=== PATIENT | female | born 1995 | race Two or more races ===

== ENCOUNTER → 2019-04-01 | Outpatient (REF) | payer OTHER ==
[2019-04-01 22:25] LABS: CHLAMYDIA DNA AMPLIFICATION NEGATIVE (NEGATIVE); GC DNA AMPLIFICATION NEGATIVE (NEGATIVE)
== END ==
LOC: M SFHCLUC 10:35
PROVIDERS: ATTEND Nurse Practitioner Family
DX: R30.0 Dysuria (principal)

== ENCOUNTER → 2019-07-20 | Outpatient (REF) | payer OTHER | LOC: M SFHCLERA 14:51 | PROVIDERS: ATTEND Physician Assistant | DX: R50.9 Fever, unspecified (principal); G43.909 Migraine, unspecified, not intractable, without status migrainosus ==

== ENCOUNTER 2019-12-11 20:15 | Emergency (ER) | payer OTHER ==
[~2019-12-11] VITALS: Ht 160 cm; Wt 65.9 kg
[2019-12-11] MEDS ORDERED: IBUP-1022 PO (20:21)
[2019-12-11] MEDS ORDERED: ACETAMINOPHEN 325 MG TAB PO ONE (20:30)
[2019-12-11] MEDS ORDERED: ALBUTEROL SULFATE 2.5 MG/0.5 ML INH NEB SOLN NEB ONE (21:00)
[2019-12-11 21:23] LABS: INFLUENZA A AMPLIFICATION NEGATIVE (NEGATIVE); INFLUENZA B AMPLIFICATION NEGATIVE (NEGATIVE)
[2019-12-11 22:29] VITALS: BP 127/78
[2019-12-11] MEDS ORDERED: ALBUTEROL 90 MCG/ACT 8GM HFA INHALER INH ONE ×2 (22:30)
[2019-12-11] MEDS ORDERED: VENTAER INH (22:31)
[2019-12-11] MEDS ORDERED: TESS100C PO (22:31)
--- NOTE | 2019-12-12 01:50 | REP ---
Clinical: Cough and fever . Comparison: None . Technique: PA and lateral. Findings: The mediastinum and cardiac silhouette are normal. The lung villalobos are clear and without acute consolidation, effusion, or pneumothorax. The skeletal structures are intact and normal. Impression: 1. No acute cardiopulmonary process. Electronically Signed by Sha Ross MD 12/12/2019 01:41 A
== END 2019-12-11 22:41 | disposition home or self-care (01) ==
LOC: M ED 20:15
DX: J21.8 Acute bronchiolitis due to other specified organisms (principal)

== ENCOUNTER 2021-05-15 21:41 | Outpatient (CLI) | payer OTHER ==
[~2021-05-15] VITALS: Ht 160 cm; Wt 75.4 kg
[~2021-05-15 21:41] MED LIST: IBUP-1022 PO; TESS100C PO; VENTAER INH
[2021-05-15 21:59] VITALS: BP 128/77
[2021-05-15 22:58] VITALS: BP 114/68
[2021-05-15 23:15] LABS: APPEARANCE, URINE CLEAR (CLEAR); BACTERIA, URINE AUTO 2+ (NEGATIVE); BILIRUBIN, URINE AUTO NEGATIVE (NEGATIVE); BLOOD, URINE BLOOD NEGATIVE (NEGATIVE); COLOR, URINE STRAW (YELLOW); GLUCOSE, URINE (UA) AUTO NEGATIVE (NEGATIVE); KETONE, URINE AUTO NEGATIVE (NEGATIVE); LEUKOCYTE ESTERASE, URINE AUTO NEGATIVE (NEGATIVE); NITRITE, URINE AUTO NEGATIVE (NEGATIVE); PROTEIN, URINE AUTO NEGATIVE (NEGATIVE); RBC, URINE AUTO 0 /HPF (0-3); SPECIFIC GRAVITY URINE AUTO 1.003 (1.002-1.035); SQUAMOUS EPITHELIAL CELL UR AU 2 /HPF (0-6); UROBILINOGEN, URINE AUTO 0.2 mg/dL (0.0-2.0); WBC, URINE AUTO 2 /HPF (0-3)
--- NOTE | 2021-05-15 23:25 | IPNPDOC ---
Text Note Date of Service The patient was seen on 05/15/21. NOTE TRIAGE EVALUATION FOR RULE-OUT RUPTURE OF MEMBRANES HPI: Mrs. Valentine Naranjo is a 25yo at 32w4d ega, by LMP c/w 1st trimester ultrasound, with PNC c/b Depression & Late Entry To Care who presents for rule-out rupture of membranes. Mrs. Naranjo reports "a single gush of clear fluid at 20:00". No leakage since. She denies uterine CTXs & VB. Endorses FM. PMH: - Negative PSH: - Negative OBH: - G1: (2017) spontaneous conception, current partner, T-, PPD on medication x1-month - G2: (2020) spontaneous conception GYNH: - LMP: 29 September 2020 - Denies a h/o STIs or PID Medications: - PNVs ALL: - NKDA SH: - Dependent, to an active duty Solider - Denies tobacco, alcohol & illicit drug use FH: - Negative PHYSICAL EXAMINATION: Afebrile, Normotensive Gen: AAox3, NAD, Speaking in complete sentences Abd: Gravid uterus : Normal appearing external genitalia SSE: Normal appearing vaginal mucosa & cervix; physiologic discharge; visibily closed cervix; No pooling of fluid; fFN / Wet Prep / ROSALES / G&C NAAT / & GBS collected SVE: Closed/Long/High NST: BL 130bpm, moderate variability, + accelerations, - decelerations TOCO: Uterine irritability Labs: UA: - PENDING UCx - PENDING GBS - PENDING G&C NAAT - PENDING fFH - Discarded given cervical length of 3.67cm ROSALES - Negative Wet Prep - Negative Ferning - Negative Nitrazine - Negative Imaging: TVUS CL - 3.67cm LIMITED ULTRASOUND SDP - 5.7cm Assessment: 25yo at 32w4d ega without evidence of rupture of membranes with negative Nitrazine / fern test & adequate SDP. No e/o PTL with a cervical length of 3.67cm with a closed cervix. Plan: - Patient discharged to home with strict return precautions - Patient will follow-up at a [facility] appointment scheduled for , 16 May 2021 - Will discuss UA/UCx/GBS/ G&C NAAT results at that visit - All questions answered Diego Lopez., Ph.D. ADRYAN & OB-SUPERVISOR [facility] Staff Physician DENISHA CALLAHAN M.D. May 15, 2021 23:25
[2021-05-16 00:35] LABS: CHLAMYDIA DNA AMPLIFICATION NEGATIVE (NEGATIVE); GC DNA AMPLIFICATION NEGATIVE (NEGATIVE)
== END 2021-05-15 23:06 | disposition home or self-care (01) ==
LOC: M LDO 21:41
PROVIDERS: ATTEND Obstetrics & Gynecology Reproductive Endocrinology
DX: O26.893 Other specified pregnancy related conditions, third trimester (principal); N89.8 Other specified noninflammatory disorders of vagina; Z3A.32 32 weeks gestation of pregnancy
CPT/HCPCS: 59025; 76815; 81001; 87081; 87086; 87661; G0378; G0463

== ENCOUNTER 2021-06-12 22:23 | Outpatient (CLI) | payer OTHER ==
[~2021-06-12] VITALS: Ht 160 cm; Wt 77.1 kg
[2021-06-12 22:38] VITALS: BP 138/63
[2021-06-12] MEDS ORDERED: STUACAP PO (22:42)
[2021-06-12] MEDS ORDERED: PRED5CON PO (22:44)
--- NOTE | 2021-06-13 00:55 | IPNPDOC ---
Date Seen The patient was seen on 06/13/21. Progress Note SUBJECTIVE: Patient is a 25-year-old AT 36 .6 WEEKS CONTRACTIONS Q 5 MINUTES MILD IN NATURE NO SROM NO VAGINAL DISCHARGE PRESENTED FOR ASSESSMENT ACTIVE LABOR . OBJECTIVE PHYSICAL EXAMINATION: VITAL SIGNS: Please see below. GENERAL: HEALTHY NO ACUTE DISTRESS HEENT: NORMAL CARDIOVASCULAR: SI S2 NO MURMUR RESPIRATORY: CLEAR BILATERAL TO BASES NO RALES NO RHONCHI . ABDOMINAL: SF HEIGHT 36 CM VERTEX BOWEL SOUNDS ACTIVE UTERUS NONTENDER EXTREMITIES: NO EDEMA NO DVT NO SVT NEUROLOGICAL: NORMAL PSYCHOLOGICAL: WELL LABORATORY DATA, IMAGING STUDIES, MICROBIOLOGY: Please see below. Echocardiogram: . DVT prophylaxis ordered?: ASSESSMENT AND PLAN: This is a 25 TEAR OLD UTERINE IRRITABILITY POSSIBLE DEHYDRATION NOT IN ACTIVE LABOR . PLAN NST DISCHARGE WITH PRECAUTIONS KEEP OB APPOINTMENT PROBLEMS: 1. PRE TERM UTERINE IRRITABILITY . 2. DEHYDRATION 3. : . DISPOSITION: . VS, I&O, 24H, Fishbone Vital Signs/I&O Vital Signs Date Time Temp Pulse Resp B/P (MAP) Pulse Ox O2 Delivery O2 Flow Rate FiO2 06/12/21 22:38 98.0 90 18 138/63 (88) Room Air Laboratory Data Microbiology Microbiology 06/12/21 Group B Streptococcus Screen (MARKUS), Received Pending Albaro Clarke MD Jun 13, 2021 00:54
== END 2021-06-12 23:52 | disposition home or self-care (01) ==
LOC: M LDO 22:23
PROVIDERS: ATTEND Obstetrics & Gynecology
DX: O47.03 False labor before 37 completed weeks of gestation, third trimester (principal); Z3A.36 36 weeks gestation of pregnancy; O26.893 Other specified pregnancy related conditions, third trimester; N88.8 Other specified noninflammatory disorders of cervix uteri; O99.283 Endocrine, nutritional and metabolic diseases complicating pregnancy, third trimester; E86.0 Dehydration; Z79.899 Other long term (current) drug therapy
CPT/HCPCS: 59025; 87081; G0378; G0463

== ENCOUNTER 2021-06-14 23:29 | Outpatient (CLI) | payer OTHER ==
[~2021-06-14] VITALS: Ht 160 cm; Wt 77.9 kg
[~2021-06-14 23:29] MED LIST changes: +PRED5CON PO; +STUACAP PO
[2021-06-15 00:34] VITALS: BP 132/73
--- NOTE | 2021-06-17 12:20 | HPE ---
HISTORY AND PHYSICAL DATE OF ADMISSION: 06/14/2021 HISTORY OF PRESENT ILLNESS: This lady is a 25-year-old 2, para 1, LMP September 29, 2020, Her EDC is July 06, 2021. She is presently at 36 and 6/7 weeks. This is her third evaluation in triage for contractions. 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 She was late entry to care and she is with uterine irritability. PAST HISTORY: July 04, 2018, 39 weeks, spontaneous vaginal delivery, female, 6 pounds 11 ounces, uncomplicated. She did have post- depression medications at that time. ALLERGIES: She has no known allergies. MEDICATIONS: She is on vitamins. PHYSICAL EXAMINATION: GENERAL: On admission, she appears to be distressed. She has contractions 2-5 minutes apart. She expresses moderate intensity, although they palpate mild. She has a category 1 strip on the monitor. VITAL SIGNS: Her blood pressure is 132/73, respirations 18, pulse 62, temperature 98.0. The rest of the examination is unremarkable. HEENT: Normocephalic atraumatic, neck full range of motion. Pupils equal and reactive to light. EXTREMITIES: Distal pulses are symmetric. No evidence of DVT, PE, or superficial phlebitis. CHEST: Chest is clear bilaterally at the bases. No wheezes or rhonchi. No CVA tenderness. ABDOMEN: Soft, four quadrant bowel sounds are noted. Presentation is vertex. The uterus is relaxed in between Evaristo Paiz contractions. She denies, nor does she show, any vaginal bleeding or discharge or premature rupture of membranes. INITIAL EXAMINATION: She has made some change from the past evaluation two days ago. Presently, she is 80% effaced, very posterior, 1-2 cm, and soft. The patient has expressed a wish to stay for another two hours and reevaluation. Two hours later on examination, she was found to have contractions spaced out to 6 minutes. She was well hydrated. Again, vaginal examination showed vertex presenting. Cervix is still 80% effaced, very posterior, 2 cm, again no show and no bleeding. We again cautioned her with precautions. If she has ruptured membranes, bleeding, or contractions lasting more than 60 seconds, to return for evaluation, otherwise to maintain her appointment at her office visit next week. SUMMARY: at 36 and 6/7 weeks of gestation with Duval Paiz significant contractions, category 1 strip. Discharged undelivered. [facility]
== END 2021-06-15 01:42 | disposition home or self-care (01) ==
LOC: M LDO 23:29
PROVIDERS: ATTEND Obstetrics & Gynecology
DX: O47.03 False labor before 37 completed weeks of gestation, third trimester (principal); Z3A.36 36 weeks gestation of pregnancy
CPT/HCPCS: 59025; G0378; G0463

== ENCOUNTER 2021-06-16 21:41 | Outpatient (CLI) | payer OTHER ==
[~2021-06-16] VITALS: Ht 160 cm; Wt 77.2 kg
[2021-06-16 22:10] VITALS: BP 131/71
--- NOTE | 2021-06-16 22:24 | IPNPDOC ---
Obstetrical Progress Note Date of Service Jun 16, 2021 Subjective Ms. Naranjo is a 26yo at 37+2 presenting for a labor check. she denied vb, lof, decreased fm. She was 2cm on Thursday. Objective Vital Signs Date Time Temp Pulse Resp B/P (MAP) Pulse Ox O2 Delivery O2 Flow Rate FiO2 06/16/21 22:10 97.8 75 16 131/71 (91) 98 Assessment Heart Rate (FHR): 130 Variability: Moderate Accelerations: Positive Decelerations: None Heart Rate Tracing: Category I Tocometer Contractions: Yes Frequency: irregular Sterile Vaginal Examination Dilation: 2cm Effacement (%): 80% Station: -2 Cervical Consistency: Medium Cervical Position: Posterior Postion/Presentation: Cephalic presentation (by US MVP 5.5c,) Assessment and Plan Status: Reassuring Additional Comments Ms. Naranjo is a 26yo at 37+2 presenting for a labor check. She was 2cm on Thursday. She remains 2cm today. NST CAT I reactive. VS normal. Eminent active labor is unlikely at this time. Educated on routine OB return precautions. Otherwise to follow up at next LOGAN LOVE DO Jun 16, 2021 22:24
== END 2021-06-16 22:20 | disposition home or self-care (01) ==
LOC: M LDO 21:41
PROVIDERS: ATTEND Obstetrics & Gynecology
DX: O47.03 False labor before 37 completed weeks of gestation, third trimester (principal); Z3A.37 37 weeks gestation of pregnancy
CPT/HCPCS: 59025; 76815; G0378; G0463

== ENCOUNTER 2021-06-18 04:44 | Outpatient (CLI) | payer OTHER ==
[~2021-06-18] VITALS: Ht 160 cm; Wt 77.2 kg
[2021-06-18 04:56] VITALS: BP 133/74
[2021-06-18] MEDS ORDERED: ACET500P3 PO (05:14)
[2021-06-18] MEDS ORDERED: BENA25CA4 PO (05:15)
[2021-06-18 05:51] VITALS: BP 170/85
[2021-06-18] MEDS ORDERED: MORPHINE 2 MG/ML 1ML VIAL (J2270) IM ONE (05:55)
[2021-06-18 06:00] VITALS: BP 148/67
[2021-06-18 06:42] VITALS: BP 129/60
[2021-06-18 07:26] VITALS: BP 123/74
--- NOTE | 2021-06-18 07:35 | IPNPDOC ---
Subjective Date Seen The patient was seen on 06/18/21. Subjective Chief Complaint/HPI Ms. Naranjo is a 26yo at 37+4 presenting for a labor check. Patient states she has had regular contractions every 2-3 min for the past week. Denies LOF, VB or discharge. +GFM General: Reports: Normal Appetite; Denies: Chills, Night Sweats, Fatigue, Malaise Constitutional: Denies: Chills, Fever, Night Sweats Cardiovascular: Denies: Chest Pain, Palpitations, Orthopnea, Paroxysmal Noc. Dyspnea, Lt Headedness Gastrointestinal: Denies: Nausea, Vomiting, Abdominal Pain, Diarrhea, Constipation Psych: Reports: Mood Normal; Denies: Depression, Memory Issues Objective Physical Examination General Exam: Positive: Alert, No Acute Distress Chest Exam: Positive: Normal air movement Heart Exam: Positive: Rate Normal Abdomen Exam: Positive: Other (gravid) Psych Exam: Positive: Mental status NL, Mood NL, Oriented x 3 Other physical findings FHT: 140's mod variability, + accels, no decels. Cat 1 tracing Nibbe: regular contractions every 2-3 min SVE: 1-2/T/H, very posterior cervix Assessment /Plan Assessment 26yo at 37w4d presenting for labor check. Pt offered morphine rest (1 dose IM to avoid having to insert IV). States it provided no relief. She was 2cm on Thursday and again on Thursday. She remains 2cm today. NST CAT I reactive. VS normal. Eminent active labor is unlikely at this time. Pt frustrated and would like to know what to do. Discussed with patient that even is she was 40wks and we could proceed with elective induction, there is nothing I can do at this time as she is jaycee regularly on her own and SVE is very posterior/cervix difficult to reach therefore would be unable to offer sweep or AROM. Pt encouraged to rest. Offered to keep an additional hour and recheck, pt states she would like to go home. Has follow up on . Plan/VTE VTE Prophylaxis Ordered?: No VTE Exclusion Mechanical Proph: Other (triage only visit ) VS, I&O, 24H, Fishbone Vital Signs/I&O Vital Signs Date Time Temp Pulse Resp B/P (MAP) Pulse Ox O2 Delivery O2 Flow Rate FiO2 06/18/21 06:42 57 20 129/60 (83) 06/18/21 04:56 97.8 EMERITA GUNDERSON M.D. Jun 18, 2021 07:35
== END 2021-06-18 07:47 | disposition home or self-care (01) ==
LOC: M LDO 04:44
PROVIDERS: ATTEND Obstetrics & Gynecology
DX: O47.1 False labor at or after 37 completed weeks of gestation (principal); Z3A.37 37 weeks gestation of pregnancy
CPT/HCPCS: 59025; 96372; G0378; G0463; J2270

== ENCOUNTER 2021-06-20 18:00 | Outpatient (CLI) | payer OTHER ==
[~2021-06-20] VITALS: Ht 160 cm; Wt 78.1 kg
[~2021-06-20 18:00] MED LIST changes: +ACET500P3 PO; +BENA25CA4 PO
[2021-06-20 18:22] VITALS: BP 120/69
--- NOTE | 2021-06-20 19:01 | IPNPDOC ---
Obstetrical Progress Note Date of Service Jun 20, 2021 Subjective Ms. Naranjo is a 25yo at 37+5 who presents for her 2h recheck after NST and SVE in clinic for labor check. She was 3/50/-3, cephalic, with good fluid, and a CAT I NST. She still denied VB, LOF, decreased FM. Objective Vital Signs Date Time Temp Pulse Resp B/P (MAP) Pulse Ox O2 Delivery O2 Flow Rate FiO2 06/20/21 18:22 98.0 100 15 120/69 (86) Room Air Assessment Variability: Moderate Accelerations: Positive Decelerations: None Heart Rate Tracing: Category I Tocometer Contractions: Yes Frequency: irregular Sterile Vaginal Examination Dilation: 3 cm Effacement (%): 50% Station: -3 Cervical Consistency: Medium Cervical Position: Posterior Postion/Presentation: Cephalic presentation Assessment and Plan Additional Comments Ms. Naranjo is a 25yo at 37+5 who presents for her 2h recheck after NST and SVE in clinic for labor check. She was 3/50/-3, cephalic, with good fluid, and a CAT I NST. Her cervix remains unchanged and her NST remains CAT I. Eminent active labor is unlikley at this time. Educated on routine OB return precautions Otherwise follow up at next LOGAN ABDALLA DO Jun 20, 2021 19:01
== END 2021-06-20 19:00 | disposition home or self-care (01) ==
LOC: M LDO 18:00
PROVIDERS: ATTEND Obstetrics & Gynecology
DX: O36.8330 Maternal care for abnormalities of the fetal heart rate or rhythm, third trimester, not applicable or unspecified (principal); Z3A.37 37 weeks gestation of pregnancy; Z79.899 Other long term (current) drug therapy
CPT/HCPCS: 59025; G0378; G0463

== ENCOUNTER → 2021-06-22 | Outpatient (CLI) | payer OTHER ==
[~2021-06-22] VITALS: Ht 160 cm; Wt 79.7 kg
[~2021-06-22] MED LIST changes: +ONDANSETRON 4 MG TAB PO ONE
[2021-06-22 02:27] VITALS: BP 126/74
[2021-06-22 03:34] VITALS: BP 124/73
[2021-06-22 04:31] LABS: APPEARANCE, URINE CLEAR (CLEAR); BACTERIA, URINE AUTO NEGATIVE (NEGATIVE); BILIRUBIN, URINE AUTO NEGATIVE (NEGATIVE); BLOOD, URINE BLOOD NEGATIVE (NEGATIVE); COLOR, URINE COLORLESS (YELLOW); GLUCOSE, URINE (UA) AUTO NEGATIVE (NEGATIVE); KETONE, URINE AUTO NEGATIVE (NEGATIVE); LEUKOCYTE ESTERASE, URINE AUTO NEGATIVE (NEGATIVE); NITRITE, URINE AUTO NEGATIVE (NEGATIVE); PROTEIN, URINE AUTO NEGATIVE (NEGATIVE); RBC, URINE AUTO 0 /HPF (0-3); SPECIFIC GRAVITY URINE AUTO 1.001 (1.002-1.035); SQUAMOUS EPITHELIAL CELL UR AU 0 /HPF (0-6); UROBILINOGEN, URINE AUTO 0.2 mg/dL (0.0-2.0); WBC, URINE AUTO 0 /HPF (0-3)
--- NOTE | 2021-06-22 04:57 | IPNPDOC ---
Obstetrical Progress Note Date of Service Jun 22, 2021 Subjective 26yo at 38+0 presenting to triage with contraction pain, loss of mucus plug and nausea/reflux. States contractions worsen every evening around 0100 waking her from sleep. She also feels nauseated tonight and feels that she has had increasing reflux, requesting medication for management. She otherwise denies LOF, VB or discharge. +GFM. Objective Laboratory Tests 06/22/21 04:00: Urine Color COLORLESS, Urine Appearance CLEAR, Urine pH 7.0, Urine Specific [place] 1.001L, Urine Protein NEGATIVE, Urine Glucose (Auto)(UA) NEGATIVE, Urine Ketones (Auto) NEGATIVE, Urine Blood NEGATIVE, Urine Nitrite NEGATIVE, Urine Bilirubin NEGATIVE, Urine Urobilinogen 0.2, Urine Leukocyte Esterase (Auto) NEGATIVE, Urine WBC (Auto) 0, Urine RBC (Auto) 0, Urine Hyaline Casts (Auto) 0, Urine Bacteria (Auto) NEGATIVE, Urine Squamous Epithelial Cells 0, Urine Sperm (Auto) BP 126/74 HR 75 Temp 98.1 Assessment Heart Rate (FHR): 120 Variability: Moderate Accelerations: Positive Decelerations: None Heart Rate Tracing: Category I Tocometer Contractions: Yes Frequency: irregular (every 2-6 min) Sterile Vaginal Examination Dilation: 3 cm Effacement (%): 60% Station: -3 Cervical Consistency: Soft Cervical Position: Posterior Postion/Presentation: Cephalic presentation Assessment and Plan Status: Reassuring Additional Comments Ms. Naranjo is a 26yo at 38+0 presenting with contraction pain, loss of mucus plug and nausea. Contractions are similar to every evening around 0100 where they have been increasing in frequency/intensity overnight. SVE has remained unchanged over several rechecks in triage over the past week. Pt does note some pressure/discomfort with urination as well. While in triage, provided dose of zofran for nausea which patient states worked well. Rx provided for zofran and pepcid. UA also obtained and neg for UTI. Pt given return precautions. Offered recheck prior to D/C home, pt declined. All questions answered. EMERITA GUNDERSON M.D. Jun 22, 2021 04:57
== END ==
LOC: M LDO 02:02
PROVIDERS: ATTEND Obstetrics & Gynecology
DX: O26.893 Other specified pregnancy related conditions, third trimester (principal); Z3A.38 38 weeks gestation of pregnancy; R11.0 Nausea; O99.613 Diseases of the digestive system complicating pregnancy, third trimester; K21.9 Gastro-esophageal reflux disease without esophagitis
CPT/HCPCS: 59025; 81001; G0378; G0463

== ENCOUNTER 2021-07-01 03:03 | Outpatient (CLI) | payer OTHER ==
[~2021-07-01] VITALS: Ht 160 cm; Wt 81.5 kg
[~2021-07-01 03:03] MED LIST changes: -ONDANSETRON 4 MG TAB PO ONE
[2021-07-01 03:20] VITALS: BP 148/84
[2021-07-01 04:46] VITALS: BP 146/72
[2021-07-01] MEDS ORDERED: HOME MED LIST COMPLETE! XX SCH (05:00)
[2021-07-01 05:30] VITALS: BP 134/72
--- NOTE | 2021-07-01 07:23 | IPN ---
PROGRESS NOTE DATE: 07/01/2021 SUBJECTIVE: This is the ninth evaluation of this lady for query labor check. Today she comes in with a history of contractions and query spontaneous rupture of membranes. She had called 4-1/2 hours previously, was told to wear diaper or pad and if they damp, to come in for evaluation. She comes in six hours later with history of contractions and said that she ruptured membranes at 15:30 yesterday. Her LMP was September 29, 2020. Her EDC by early ultrasound is July 06, 2021 at 39 plus weeks of gestation. She has a history of decompression on meds. She has late entry to care. 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 PAST HISTORY: July 04, 2018 at 39 weeks delivered livebirth female, 6 lb, 11 oz, had severe depression, no complications during the delivery. Presently she does not have any active oral HSV. She has significant history of depression and is taking her medications. OBJECTIVE: On initial examination, she was found to be very posterior 1-2 cm, minus 3 station, no defined ruptured membranes noted. Nitrazine was equivocal. She was maintained here for 2-3 hours, had a category 1 strip with accelerations, moderate variability. The baseline was normal. She was reevaluated. The cervix was very posterior, now 70% effaced, again 2 cm, no clear fluid. No vaginal bleeding was noted. No oral lesions were noted and no vulvar lesions were noted. She did have two mid-range blood pressures, however indeterminate that is the reason why, possibly related to contractions. On overall examination basically unchanged cervix from the last evaluations. Again we gave her precautions regarding her premature rupture of membranes, bleeding, contractions, 5-7 minutes apart, lasting 60 seconds. She has an appointment on Thursday for routine visit at which induction of labor can be set up. We did mention to her that induction of labor is at 41 weeks unless there are other intercurrent issues. Her anticipation was because she delivered at 39 and 3 last time that she should be delivered at this time. Again we reemphasized that 39 weeks for induction of labor is only related to risk factors to mother and baby. The patient expressed understanding. The patient was discharged undelivered, has an appointment as mentioned. Her two blood pressures when she was here, 148/84 and 146/72. Interim blood pressure just before discharge was 134/72. Reflexes are normal, no eye ground issues, no right upper quadrant pain, no edema. Pulse was 80. Temperature is 97.5 and respirations were 18. In summary, we have a term gestation with uterine irritability, discharged undelivered to follow up as mentioned. [facility]
== END 2021-07-01 05:45 | disposition home or self-care (01) ==
LOC: M LDO 03:03
PROVIDERS: ATTEND Obstetrics & Gynecology
DX: O26.893 Other specified pregnancy related conditions, third trimester (principal); N89.8 Other specified noninflammatory disorders of vagina; Z3A.39 39 weeks gestation of pregnancy; R03.0 Elevated blood-pressure reading, without diagnosis of hypertension; Z79.899 Other long term (current) drug therapy
CPT/HCPCS: 59025; G0378; G0463

== ENCOUNTER 2021-07-03 03:28 | Inpatient (IN) | payer OTHER ==
[~2021-07-03] VITALS: Ht 160 cm; Wt 81.9 kg
[2021-07-03] VITALS (20 sets, daily range): BP systolic 99–138; BP diastolic 54–85
[2021-07-03] MEDS ORDERED: OXYTOCIN DRIP 30 UNITS in IV 1 EA IV PRN (06:45)
[2021-07-03] MEDS ORDERED: OXYTOCIN DRIP 30 UNITS in IV 1 EA IV SCH (06:45)
[2021-07-03] MEDS ORDERED: CARBOPROST TROMETHAMINE 250 MCG/ML AMP IM PRN (06:45)
[2021-07-03] MEDS ORDERED: METHYLERGONOVINE MALEATE 0.2 MG/ML VIAL (J2210) IM PRN (06:45)
[2021-07-03] MEDS ORDERED: LIDOCAINE 1% MDV 20ML VIAL INFIL PRN (06:45)
[2021-07-03] MEDS ORDERED: TRANEXAMIC ACID INJection 1,000 MG in NS 100 ML IV PRN (06:45)
[2021-07-03] MEDS ORDERED: LR 1,000 ML IV SCH (06:45)
--- NOTE | 2021-07-03 07:02 | HPEPDOC ---
Obstetrical History & Physical General Date of Admission 07/03/2021 History of Present Illness Mrs. Naranjo is a 26yo at 39w4d by LMP c/w 16w4d US with SHERRY Jun admitted for elective IOL. Pt has had regular contractions daily since 37weeks gestation with numerous visits to L&D triage. States her contractions are currently every 1-4 min apart and have been increasing in intensity. Denies LOF, VB or discharge. +GFM. Pt and and very fatigued and requesting to stay. Chief Complaint: Contractions, term Care Care: Good Care Dating Final EDC: Jul 06, 2021 Final EDC by: LMP Antepartum Course Diagnos(e)s 1. Hx of depressoin 2. HSV1 3. 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 Satisfied parity Past Medical History Past Obstetrical History : Past Obstetrical History: Multigravida Date of Delivery: Jul 04, 2018 Type of Delivery: Spontaneous Vaginal Del. Sex of : Female (6#11oz) Complications: No [employer] [facility] History: No pertinent history Past Medical History Medical History hx of postpartm depression deafness in R ear Surgical History: Denies/None Family History Significant Family History: No pertinent family hx Social History Marital Status: Family situation: Spouse/partner home * Smoker: non-smoker Alcohol: Denies Imunizations Tdap status: current (05/16/21) Allergies Coded Allergies: No Known Allergies (Unverified , 06/15/21) Medications Scheduled PRN Acetaminophen (Tylenol Extra Strength) 500 Mg Powd.pack, 1,000 MG PO PRN PRN for PAIN LEVEL 3-5 Diphenhydramine HCl (Benadryl) 25 Mg Capsule, 50 MG PO PRN PRN for SLEEP Miscellaneous Medications Pnv No.63/Iron,Carb/Folic/Dha (Moy One Capsule) 1 Each Capsule, 1 CAP PO Physical Examination Physical Examination GENERAL: Alert and oriented times three. BREAST: . ABDOMEN: Gravid and non-tender to touch. FETUS: Is vertex (VTX) by sterile vaginal examination (SVE) an TAUS HEART RATE: Regular rate LUNGS: normal work of breathing EXTREMITIES: No edema. No clonus. Vital Signs/I&O BP: 132/81 (initially 173/94 with incorrectly sized cuff, repeat normal) HR 70 Temp 97.6 Pertinent Laboratoy Data Blood Type: A+ RBC Antibody Screen: Negative HIV: Negative Hepatitis B: Negative Rapid Plasma Reagin: Nonreactive Rubella: Immune Varicella: Immune Chlamydia/Gonorrhea: Negative Group B Streptococcus: Negative Glucose Tolerance Test: 97 Anatomy Ultrasound Placenta Location: Anterior Normal Anatomy: Yes Vaginal Examination Dilation: 3 cm Effacement: 50% Station: -3 Cervical Consistency: Soft Cervical Position: Posterior Presentation: Cephalic presentation Assessment Heart Rate (FHR): 130 Variability: Moderate Accelerations: Positive Decelerations: None Tocometer Contractions: Yes Frequency: irregular, every 1-5 min. Strength: palpated as moderate Assessment/Plan Assessment 26yo at 39w4d by LMP c/w 16w4d US with SHERRY Jul 20, admitted for elective IOL Plan Admit and orient. Back Tender and consent. Diet: Regular, clears if on pitocin or active labor. Group B Streptococcus (GBS) NEGATIVE Labs and intravenous (IV) per unit protocol. Counseled on Pitocin and induction of labor (IOL). Anticipate normal spontaneous delivery (). C-S as appropriate. Labor and Delivery Counseling We will deliver your baby through the vagina with possible assistance of forceps or vacuum device if needed for maternal or indications. Forceps and vacuum are devices that can assist with vaginal delivery when normal pushing efforts cannot achieve delivery on their own or when delivery is needed in an emergency for baby's well-being. Medications may be required to induce or augment (help) your labor in order to achieve a vaginal delivery. An episiotomy may be required to help your baby to delivery vaginally. You may also require repair of any lacerations or tears of your vagina or vulva that are caused by delivery. In some cases, emergencies can occur that require an emergency section delivery so quickly that there may not be enough time to stop and complete consent forms for section. Understand that if this occurs, your providers will discuss the need for a section with you before they proceed with surgery. section is the delivery of your baby through an incision in your abdomen. In some situations, section may be safer to mom and baby than continuing labor and is only performed when clinically indicated. Risks of vaginal delivery include but are not limited to: Bleeding, infection, injury to the vagina, pelvic structures, injury to baby, damage to the uterus, reactions to anesthesia, uterine rupture, risk of hysterectomy for life threatening bleeding, or . Medications used to induce or augment labor may increase your risk for infection, uterine tachysystole, uterine rupture, heart rate abnormalities, need for emergency delivery or possible dany arean hysterectomy, and hemorrhage. Additional risks for use of forceps and vacuum include: increased risk of perineal and vaginal lacerations, risk of urinary or bowel incontinence, increased risk of injury to baby with bruising, scratches, hematomas on the head, or intracranial bleeding. EMERITA GUNDERSON M.D. Jul 03, 2021 07:02
[2021-07-03 08:12] LABS: HEMATOCRIT 39.8 % (36.0-47.0); HEMOGLOBIN 13.6 g/dl (12.0-15.5); MEAN CORPUSCULAR HGB CONC 34.2 g/dl (32.0-36.5); MEAN CORPUSCULAR VOLUME 87.9 fl (80.0-96.0); PLATELET COUNT, AUTOMATED 252 10^3/uL (150-450); RED BLOOD COUNT 4.53 10^6/uL (4.00-5.40); WHITE BLOOD COUNT 12.8 10^3/uL (4.0-10.0)
[2021-07-03 08:44] LABS: ALBUMIN 2.5 GM/DL (3.2-5.2); ALT/SGPT 17 U/L (12-78); BILIRUBIN,TOTAL 0.4 MG/DL (0.2-1.0); BLOOD UREA NITROGEN 12 MG/DL (7-18); CALCIUM LEVEL 8.9 MG/DL (8.5-10.1); CARBON DIOXIDE LEVEL 20 MEQ/L (21-32); CHLORIDE LEVEL 107 MEQ/L (98-107); CREATININE FOR GFR 0.72 MG/DL (0.55-1.30); GLOMERULAR FILTRATION RATE > 60.0 (>60); GLUCOSE, FASTING 88 MG/DL (70-100); POTASSIUM SERUM 4.3 MEQ/L (3.5-5.1); SODIUM LEVEL 137 MEQ/L (136-145); TOTAL PROTEIN 6.3 GM/DL (6.4-8.2)
[2021-07-03] MEDS ORDERED: FENTANYL 2MCG/ML ROPIVACAINE 0.2% IN 0.9% NACL 100ML IVBAG As Ordered ONE (09:00)
[2021-07-03 09:06] LABS: CREATININE,RANDOM URINE 58.4 MG/DL; TOTAL PROTEIN,RANDOM URINE 41.5 MG/DL (0.0-12.0)
[2021-07-03] MEDS ORDERED: EPIDURAL/PCA KEYS XX PRN (09:10)
[2021-07-03] MEDS ORDERED: NALOXONE INJ 0.4MG/1ML VIAL (J2310 PER 1MG) IV PRN (09:10)
[2021-07-03] MEDS ORDERED: EPIDURAL COMMENT XX SCH (09:10)
[2021-07-03] MEDS ORDERED: REFRIGERATOR IV KEYS XX PRN (09:10)
[2021-07-03] MEDS ORDERED: diphenhydrAMINE 50MG/ML VIAL (J1200) IV PRN (09:10)
[2021-07-03] MEDS ORDERED: LACTATED RINGER'S 1000 ML IV PRN (09:10)
[2021-07-03] MEDS ORDERED: FENTANYL/ROPIVACAINE/NACL BAG 100 ML EPIDURAL SCH (09:10)
[2021-07-03] MEDS ORDERED: ONDANSETRON 4MG/2ML VIAL IV PRN (09:10)
[2021-07-03] MEDS ORDERED: ePHEDrine SULFATE 25 MG/5 ML(5MG/ML) SYRINGE IV PRN (09:10)
--- NOTE | 2021-07-03 09:41 | IPNPDOC ---
Obstetrical Progress Note Date of Service Jul 03, 2021 Subjective 26 yo at 39w4d with SHERRY of 06 JUL 2021 admitted for labor. She is now comfortable with her epidural. She has no further complaints at this time. She has supportive family at the bedside. Objective Spontaneous gross rupture noted during her cervical exam with copious amounts of clear fluid. Assessment Heart Rate (FHR): 135 Variability: Moderate Accelerations: None Decelerations: Early, Variable Tocometer Contractions: Yes Frequency: regular (every 3-5 minutes) Sterile Vaginal Examination Dilation: 6 cm (6-7 cm) Effacement (%): 90% Station: -1 Cervical Consistency: Soft Cervical Position: Middle Postion/Presentation: Cephalic presentation Assessment and Plan Age: 26 : 2 Term: 1 Pre-term: 0 Abortions: 0 Livin Weeks & Days 39w4d Status: Reassuring Group B Streptococcus: Negative Anticipate: Vaginal Delivery RODNEY OCONNELL CNM Jul 03, 2021 09:41
[2021-07-03] MEDS ORDERED: PROMETHAZINE 25 MG TAB PO PRN (13:40)
[2021-07-03] MEDS ORDERED: ACETAMINOPHEN TAB 650MG DOSE (2X325MG) PO PRN (13:40)
[2021-07-03] MEDS ORDERED: METHYLERGONOVINE MALEATE 0.2 MG TAB PO PRN (13:40)
[2021-07-03] MEDS ORDERED: DIBUCAINE 1% OINTMENT 30GM TOP PRN (13:40)
[2021-07-03] MEDS ORDERED: MEASLES,MUMPS,RUBELLA VACCINE INJ (MMR-II) (90707) SC SCH (13:40)
[2021-07-03] MEDS ORDERED: IBUPROFEN 600MG TAB PO PRN (13:40)
--- NOTE | 2021-07-03 13:46 | DNPDOC ---
[facility] Delivery Note Delivery Note Date of the procedure: 03 JUL 2021 Preoperative diagnosis: 1. 26 y/o at 39w4d 2. Active labor 3. GBS negative 4. A positive 5. Hx of PP depression 6. 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 Mildly elevated BP 8. Borderline oligohydramnios at 6 cm Postoperative diagnosis: 1. 1. 26 y/o G2 now P2002 at 39w4d 2. Active labor 3. GBS negative 4. A positive 5. Hx of PP depression 6. 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 Mildly elevated BP 8. Borderline oligohydramnios at 6 cm Procedure: Delivering Provider: LEO Carnes CNM, RAF[employer] Manager Back-up: Dr. Boom Garrison Anesthesia: Epidural EBL: 200 ml Specimens: None Findings: Live male weighing 8 lb 2 oz, 3690 grams with Apgars of 9 and 9 at 1 and 5 minutes respectively. Complications: None Details of the procedure: The patient presented complaining of contractions and was found to be in latent labor with elevated BP and borderline oligohydramnios of 6 cm. Patient was 3 cm dilated and was then admitted to L&D. Labor progressed without Pitocin and membr anes were ruptured spontaneously for clear fluid.. The patient progressed to fully dilated and entered the second stage of labor, at which point she began to push over an intact perineum. The head was then delivered. The nuchal cord was not noted. The rest of the infant was delivered. The was placed on maternal abdomen and the cord was doubly clamped and cut. Cord blood was not collected and a 3 vessel cord was noted. Manual exploration of the uterus was not performed. Uterine tone was firm. Perineum was inspected and no was found. Cervical exam was normal. Rectal exam was not noted. Sponge, instrument, and needle counts were correct. The patient tolerated the procedure well and is stable in recovery. Note was written and electronically signed by: LEO Carnes CNM, RODNEY JOYCE CNM Jul 03, 2021 13:38
[2021-07-03] MEDS: IBUPROFEN 800 MG TAB PO PRN (18:59)
[2021-07-03] MEDS: DOCUSATE SODIUM 100MG CAPSULE PO SCH (22:06)
[2021-07-03] MEDS: ACETAMINOPHEN 500 MG TAB PO PRN (23:14)
[2021-07-04] MEDS: IBUPROFEN 800 MG TAB PO PRN ×2 (02:25→16:47)
[2021-07-04 06:00] VITALS: BP 128/63
--- NOTE | 2021-07-04 07:03 | IPNPDOC ---
Progress Note Date of Service: Jul 04, 2021 Progress Note 26 yo G2 now P2 PPD#1 s/p uncomplicated yesterday evening after being admitted for early labor. No acute events overnight. Valentine reports feeling well this AM. She is ambulating, voiding, tolerating a regular diet, and has minimal lochia. Vitals - VSS, afebrile, normotensive, non tachycardic General - AAOX3, sitting up in bed, pleasant and conversant, NAD Abdomen - Fundus firm at U-2. No fundal tenderness. Extremities - No edema UO - appropriate Valentine is doing well and is making an appropriate recovery. She desires circumcision of her son today. Continue routine care. Likely discharge home tomorrow. All questions answered. Bladimir VS, I&O, 24H, Ethan Vital Signs/I&O Vital Signs Date Time Temp Pulse Resp B/P (MAP) Pulse Ox O2 Delivery O2 Flow Rate FiO2 07/04/21 06:00 97.3 77 20 128/63 (84) 97 Room Air I&O- Last 24 Hours up to 6 AM 07/04/21 06:00 Output Total 200 ml Balance -200 ml Laboratory Data 24H LABS Laboratory Tests 2 07/03/21 07:58: Nucleated Red Blood Cells % (auto) 0.0, Urine Random Creatinine 58.4, Urine Random Total Protein 41.5H, Anion Gap 10, Glomerular Filtration Rate > 60.0, Calcium Level 8.9, Total Bilirubin 0.4, Aspartate Amino Transf (AST/SGOT) 18, Alanine Aminotransferase (ALT/SGPT) 17, Alkaline Phosphatase 234H, Total Protein 6.3L, Albumin 2.5L, Albumin/Globulin Ratio 0.7L, Syphilis Serology NONREACTIVE CBC/BMP Laboratory Tests 07/03/21 07:58 NU DAVEY DO Jul 04, 2021 07:03
[2021-07-04] MEDS: DOCUSATE SODIUM 100MG CAPSULE PO SCH ×2 (07:44→20:10)
[2021-07-04] MEDS: ACETAMINOPHEN 500 MG TAB PO PRN ×2 (07:48→20:10)
[2021-07-04 08:34] LABS: HEMATOCRIT 33.3 % (36.0-47.0); MEAN CORPUSCULAR HEMOGLOBIN 29.8 pg (27.0-33.0); MEAN CORPUSCULAR HGB CONC 33.3 g/dl (32.0-36.5); MEAN CORPUSCULAR VOLUME 89.3 fl (80.0-96.0); PLATELET COUNT, AUTOMATED 191 10^3/uL (150-450); RED BLOOD COUNT 3.73 10^6/uL (4.00-5.40); WHITE BLOOD COUNT 11.6 10^3/uL (4.0-10.0)
[2021-07-04 08:46] LABS: HEMOGLOBIN 11.1 g/dl (12.0-15.5)
[2021-07-04] MEDS ORDERED: PRENATAL VITAMINS CHEWABLE TABLET PO SCH (09:00)
[2021-07-04 18:00] VITALS: BP 120/71
[2021-07-05] MEDS: IBUPROFEN 800 MG TAB PO PRN (01:35)
[2021-07-05 05:30] VITALS: BP 129/86
--- NOTE | 2021-07-05 07:51 | IPNPDOC ---
Progress Note Date of Service: Jul 05, 2021 Day#: 2 Progress Note 26 yo G2 now P2 PPD#2 s/p uncomplicated after being admitted for early labor. No acute events overnight. Valentine reports feeling well this AM. She is ambulating, voiding, tolerating a regular diet, and has minimal lochia and is ready to go home Vitals - VSS, afebrile, normotensive, non tachycardic General - AAOX3, sitting up in bed, pleasant and conversant, NAD Abdomen - Fundus firm at U-2. No fundal tenderness. Extremities - No edema UO - appropriate ASSESSMENT: 26 yo G2 now P2 PPD#2 s/p uncomplicated after being admitted for early labor. Vitals within normal limits, afebrile, hemodynamically stable with no evidence of infection. PLAN: 1. Discharge to home today. 2. Tylenol and Motrin for pain. 3. Encourage breast feeding and ambulation. 4. desires Vasetomy 5. Routine PP visit in 6 weeks in clinic. 6. Discussed return precautions at length. VS, I&O, 24H, Fishbone Vital Signs/I&O Vital Signs Date Time Temp Pulse Resp B/P (MAP) Pulse Ox O2 Delivery O2 Flow Rate FiO2 07/05/21 05:30 97.2 83 16 129/86 (100) 07/04/21 18:00 99 Room Air Laboratory Data 24H LABS Laboratory Tests 2 07/04/21 08:15: Nucleated Red Blood Cells % (auto) 0.0 CBC/BMP Laboratory Tests 07/04/21 08:15 KRISTIN DELGADO MD Jul 05, 2021 7:51 am
[2021-07-05] MEDS ORDERED: IBUPROFEN 800 MG TAB PO ONE (08:15)
[2021-07-05] MEDS ORDERED: ACETAMINOPHEN 500 MG TAB PO ONE (08:30)
== END 2021-07-05 13:25 | disposition home or self-care (01) | DRG 773 ==
LOC: M LDO 03:28 → M LDI 06:48 → M OBS 16:39
PROVIDERS: ADMIT Obstetrics & Gynecology; ATTEND Registered Nurse Maternal Newborn
PROC: 10D00Z1 Extraction of Products of Conception, Low, Open Approach (ICD-10-PCS; principal; 2021-07-03)
DX: O41.03X0 Oligohydramnios, third trimester, not applicable or unspecified (principal); Z3A.39 39 weeks gestation of pregnancy; Z37.0 Single live birth